=== PATIENT | female | born 1985 | race Caucasian/White ===

== ENCOUNTER 2019-03-05 18:06 | Emergency (ER) | payer OTHER ==
[~2019-03-05] VITALS: Ht 157.5 cm; Wt 90.7 kg
[2019-03-05] MEDS ORDERED: PENVK500 PO (19:25)
== END 2019-03-05 19:38 | disposition home or self-care (01) ==
LOC: ER 18:06
DX: K04.7 Periapical abscess without sinus (principal); F17.200 Nicotine dependence, unspecified, uncomplicated
CPT/HCPCS: 99282